=== PATIENT | female | born 1970 | race Caucasian/White ===

== ENCOUNTER 2023-05-21 14:06 | Emergency (ER) | payer MEDICAID ==
[~2023-05-21] VITALS: Ht 167.6 cm; Wt 76.8 kg
[2023-05-21 14:11] VITALS: TEMP 98.1
[2023-05-21 17:05] LABS: BASO % 0.4 % (0.0-2.0); EOS # 0.3 K/mm3 (0.0-0.7); EOS % 4.8 % (0.0-4.0); GRAN # 4.8 K/mm3 (1.4-6.5); GRAN % 70.3 % (42.2-75.2); HEMOGLOBIN 11.5 g/dl (12.5-16.0); LYMPH # 1.3 K/mm3 (1.2-3.4); LYMPH % 18.4 % (20.0-51.0); MEAN CELL VOLUME 85 fl (80.0-100.0); MEAN CORPUSCULAR HEMOGLOBIN 28 pg (27-31); MEAN CORPUSCULAR HGB CONC 33 g/dl (33.0-37.0); MEAN PLATELET VOLUME 9.2 fl (7.4-10.4); MONO # 0.4 K/mm3 (0.1-0.6); MONO % 5.8 % (1.7-9.3); PLATELET COUNT 259 K/mm3 (130-400); RED BLOOD COUNT 4.15 M/mm3 (4.10-5.30); REDCELL DISTRIBUTION WIDTH-CV 12.3 % (11.5-14.5)
[2023-05-21 17:08] LABS: HEMATOCRIT 35.4 % (37.0-47.0)
[2023-05-21 17:22] LABS: CALCIUM 9.4 mg/dL (8.4-10.2); CREATININE, serum 0.99 mg/dL (0.57-1.11)
[2023-05-21 17:24] LABS: INR 1.1 (0.8-3.0); PROTHROMBIN TIME 11.6 SECONDS (9.7-12.8)
[2023-05-21 17:27] LABS: PARTIAL THROMBOPLASTIN TIME 32.5 SECONDS (26.0-37.0)
[2023-05-21 17:41] VITALS: BP 109/70; PULSE 77
== END 2023-05-21 17:41 | disposition home or self-care (01) ==
LOC: COL.ER 14:06
PROVIDERS: Internal Medicine
DX: M25.562 Pain in left knee (principal); Z87.891 Personal history of nicotine dependence; Z86.73 Personal history of transient ischemic attack (TIA), and cerebral infarction without residual deficits; Z79.82 Long term (current) use of aspirin
CPT/HCPCS: J1650